=== PATIENT | male | born 1945 | race Caucasian/White ===

== ENCOUNTER → 2020-05-10 | Outpatient (CLI) | payer MEDICARE ==
[2020-05-17 16:09] VITALS: BP 143/76
--- NOTE | 2020-05-17 16:09 | Cardiology Stress Test Report ---
Stress Test Report Date of Procedure/Referring: Date of Procedure: May 10, 2020 PCP Carlos Mccurdy Aprn Admitting Physician No,Local Physician Indications: Chest pain Baseline Heart Rate: 55 Baseline Blood Pressure: Blood Pressure Systolic: 143 Blood Pressure Diastolic: 76 Baseline EKG: Baseline EKG: sinus rhythm Summary/Conclusion: Summary: Patient exercised for 8 minutes. Maximal metabolic equivalents 9.7. He she'll heart rate 58 bpm, sinus bradycardia maximum heart rate of 131 BPM which is 91 percent of maximum predicted heart rate response. Initial blood pressure 185/76 mmHg. Maximum blood pressure of 217/74 mmHg. No chest pain during the stress test. Nondiagnostic EKG at peak exercise due to significant artifact. I cannot comment on ST segment changes. Conclusion: Good functional capacity. Hypertensive response. Nondiagnostic EKG due to significant artifact. Stress test with an imaging modality is recommended if high suspicion for obstructive CAD. Brenda BALLARD MD May 17, 2020 16:09
== END ==
LOC: CARD 10:00
PROVIDERS: ATTEND Nurse Practitioner Family
DX: I10 Essential (primary) hypertension (principal)
CPT/HCPCS: 93017

== ENCOUNTER 2020-07-10 14:14 | Emergency (ER) | payer MEDICARE ==
[~2020-07-10] VITALS: Ht 175.2 cm; Wt 85.5 kg
--- NOTE | 2020-07-10 14:37 | ED Cardiac General ---
History of Present Illness General Chief Complaint: Chest Pain Stated Complaint: CHEST PAIN Source: patient Exam Limitations: no limitations History of Present Illness Date Seen by Provider: Jul 10, 2020 Time Seen by Provider: 14:30 Initial Comments 75-year-old male presents with chest pain which began yesterday. States it has been constant. Also states that he has chest pain all the time for years, usually occurring every few days and lasting minutes to hours, but he hasn't seen a doctor for that. Poor historian, but admits to having a stress test and [facility] not to long ago. Typically sees a oxygen plant operator in [place], but is unsure what hospital. Denies any history of irregular heartbeat, heart attack or heart failure. States that he does not take aspirin or any other blood thinners. Denies any recent illness, fever or chills, cough or wheezing. Allergies and Home Medications Allergies Coded Allergies: No Known Drug Allergies (Unverified , 07/10/20) Patient Home Medication List Home Medication List Reviewed: Yes Review of Systems Review of Systems Constitutional: see HPI; No fever, No malaise, No weakness EENTM: No Symptoms Reported Respiratory: Denies Cough, Denies Shortness of Air Cardiovascular: See HPI, Chest Pain; Denies Edema, Denies Irregular Heart Rate, Denies Lightheadedness, Denies Palpitations, Denies Syncope Gastrointestinal: Denies Abdominal Pain, Denies Constipated, Denies Nausea, Denies Poor Appetite, Denies Vomiting Musculoskeletal: No back pain, No joint pain Skin: No change in color, No rash Past Mnzgmlx-Ibvuye-Vlwcap Hx Past Med/Social Hx: Reviewed Nursing Past Med/Soc Hx Patient Social History Recent Foreign Travel: No Contact w/Someone Who Travel: No Physical Exam Vital Signs Vital Signs - First Documented 07/10/20 14:15 Temp 36.8 Pulse 82 Resp 14 B/P (MAP) 127/73 (91) Pulse Ox 98 O2 Delivery Room Air Capillary Refill : Height, Weight, BMI Height: '" Weight: lbs. oz. kg; BMI Method: General Appearance: No Apparent Distress, WD/WN Neck: Full Range of Motion, Non Tender, Supple Respiratory: Lungs Clear, Normal Breath Sounds, No Accessory Muscle Use, No Respiratory Distress, Other (generalized tenderness anterior chest) Cardiovascular: No Edema, No Gallop, No JVD, No Murmur, Normal Peripheral Pulses, Irregularly Irregular Gastrointestinal: Non Tender, Soft; No Distended, No Guarding, No Hepatomegaly Extremity: Normal Capillary Refill, Normal Inspection, Non Tender, No Calf Tenderness Neurologic/Psychiatric: Alert, Oriented x3, No Motor/Sensory Deficits, Normal Mood/Affect Progress/Results/Core Measures Results/Orders Lab Results Laboratory Tests Test 07/10/20 14:30 Range/Units White Blood Count 9.1 4.3-11.0 10^3/uL Red Blood Count 4.48 4.35-5.85 10^6/uL Hemoglobin 13.4 13.3-17.7 G/DL Hematocrit 41 40-54 % Mean Corpuscular Volume 90 80-99 FL Mean Corpuscular Hemoglobin 30 25-34 PG Mean Corpuscular Hemoglobin Concent 33 32-36 G/DL Red Cell Distribution Width 12.9 10.0-14.5 % Platelet Count 277 130-400 10^3/uL Mean Platelet Volume 10.1 7.4-10.4 FL Immature Granulocyte % (Auto) 0 % Neutrophils (%) (Auto) 69 42-75 % Lymphocytes (%) (Auto) 20 12-44 % Monocytes (%) (Auto) 7 0-12 % Eosinophils (%) (Auto) 4 0-10 % Basophils (%) (Auto) 1 0-10 % Neutrophils # (Auto) 6.2 1.8-7.8 X 10^3 Lymphocytes # (Auto) 1.8 1.0-4.0 X 10^3 Monocytes # (Auto) 0.7 0.0-1.0 X 10^3 Eosinophils # (Auto) 0.4 H 0.0-0.3 10^3/uL Basophils # (Auto) 0.1 0.0-0.1 10^3/uL Immature Granulocyte # (Auto) 0.0 0.0-0.1 10^3/uL Sodium Level 143 135-145 MMOL/L Potassium Level 3.9 3.6-5.0 MMOL/L Chloride Level 106 98-107 MMOL/L Carbon Dioxide Level 25 21-32 MMOL/L Anion Gap 12 5-14 MMOL/L Blood Urea Nitrogen 14 7-18 MG/DL Creatinine 1.56 H 0.60-1.30 MG/DL Estimat Glomerular Filtration Rate 43 BUN/Creatinine Ratio 9 Glucose Level 130 H 70-105 MG/DL Calcium Level 9.3 8.5-10.1 MG/DL Corrected Calcium 9.2 8.5-10.1 MG/DL Total Bilirubin 0.7 0.1-1.0 MG/DL Aspartate Amino Transf (AST/SGOT) 20 5-34 U/L Alanine Aminotransferase (ALT/SGPT) 17 0-55 U/L Alkaline Phosphatase 71 40-136 U/L Troponin I < 0.30 <0.30 NG/ML Total Protein 6.5 6.4-8.2 GM/DL Albumin 4.1 3.2-4.5 GM/DL My Orders Orders - ROVENSTINE,ASHLEY L DO Ed Iv/Invasive Line Start (07/10/20 14:18) Cbc With Automated Diff (07/10/20 14:18) Comprehensive Metabolic Panel (07/10/20 14:18) Troponin I Fs (07/10/20 14:18) Chest 1 View Ap/Pa Only (07/10/20 14:18) Ekg Tracing (07/10/20 14:18) Aspirin Chewable Tablet (Baby Aspirin Ch (07/10/20 14:45) Medications Given in ED Current Medications Medications Dose Ordered Sig/Willie Route Start Time Stop Time Status Last Admin Dose Admin Aspirin 324 mg ONCE ONCE PO 07/10/20 14:45 07/10/20 14:46 DC 07/10/20 14:50 324 MG Vital Signs/I&O 07/10/20 07/10/20 07/10/20 14:15 14:15 15:32 Temp 36.8 36.8 Pulse 82 82 Resp 14 14 B/P (MAP) 127/73 (91) 127/73 (91) Pulse Ox 98 98 O2 Delivery Room Air Room Air Room Air Progress Progress Note : Progress Note Prior to patient discharge, resting comfortably in the room without chest pain or shortness of air. Discussed labs, EKG, chest x-ray and all are normal. Patient poor historian, but advised follow-up with his oxygen plant operator. Further history was that patient had a normal stress test less than 2 months ago in [place] by Dr. Smith. Patient advised a baby aspirin daily as he said he is supposed to be but is not. Initial ECG Impression Date: Jul 10, 2020 Initial ECG Impression Time: 14:20 Initial ECG Rate: 70 Initial ECG Rhythm: A Fib/Flutter Initial ECG Intervals: Normal Initial ECG Impression: Atrial Fibrillation Initial ECG Comparisson: No Previous ECG Available Diagnostic Imaging Comments COMPARISON: None. FINDINGS: Lung volumes are normal. No focal consolidation is seen. There is no pleural effusion or pneumothorax. The cardiac silhouette is normal in size. There is aortic atherosclerosis. IMPRESSION: 1. No acute pulmonary abnormality is seen. Dictated on workstation # [id number] Dict: 07/10/20 1441 Trans: 07/10/20 1444 [id number] Interpreted by: DEBRA GRAHAM MD Electronically signed by: Departure Impression Primary Impression: Chest pain Qualified Codes: R07.9 - Chest pain, unspecified Additional Impression: Atrial fibrillation Qualified Codes: I48.91 - Unspecified atrial fibrillation Disposition: 01 HOME, SELF-CARE Condition: Stable Departure-Patient Inst. Referrals: ANGEL LOWERY APRN (PCP) Primary Care Physician [facility] (Family) Primary Care Physician Patient Instructions: Chest Pain (DC), Atrial Fibrillation (DC) Add. Discharge Instructions: Follow up with your oxygen plant operator (in [place]) or Dr Smith in [place] in 1 week regarding your recurrent chest pain and "atrial fib". You should take a baby aspirin daily if not already doing so. All discharge instructions reviewed with patient and/or family. Voiced understanding. ASHLEY SOTO DO Jul 10, 2020 14:37
[2020-07-10] MEDS ORDERED: ASPIRIN 81 MG CHEW (CHILDREN'S ASA) PO ONE (14:45)
--- NOTE | 2020-07-10 14:45 | Diagnostic Imaging Report ---
HISTORY: Chest pain. TECHNIQUE: Frontal view of the chest. COMPARISON: None. FINDINGS: Lung volumes are normal. No focal consolidation is seen. There is no pleural effusion or pneumothorax. The cardiac silhouette is normal in size. There is aortic atherosclerosis. IMPRESSION: 1. No acute pulmonary abnormality is seen. Dictated by: Dictated on workstation # [id number]
[2020-07-10 14:47] LABS: BASOPHILS % (AUTO) 1 % (0-10); EOSINOPHILS # (AUTO) 0.4 10^3/uL (0.0-0.3); EOSINOPHILS % (AUTO) 4 % (0-10); HEMATOCRIT 41 % (40-54); HEMOGLOBIN 13.4 G/DL (13.3-17.7); LYMPHOCYTES # (AUTO) 1.8 X 10^3 (1.0-4.0); LYMPHOCYTES % (AUTO) 20 % (12-44); MEAN CORPUSCULAR HEMOGLOBIN 30 PG (25-34); MEAN CORPUSCULAR HGB CONC 33 G/DL (32-36); MEAN CORPUSCULAR VOLUME 90 FL (80-99); MEAN PLATELET VOLUME 10.1 FL (7.4-10.4); MONOCYTES # (AUTO) 0.7 X 10^3 (0.0-1.0); MONOCYTES % (AUTO) 7 % (0-12); NEUTROPHILS # (AUTO) 6.2 X 10^3 (1.8-7.8); NEUTROPHILS % (AUTO) 69 % (42-75); PLATELET COUNT 277 10^3/uL (130-400); WHITE BLOOD COUNT 9.1 10^3/uL (4.3-11.0)
[2020-07-10 14:48] LABS: BASOPHILS # (AUTO) 0.1 10^3/uL (0.0-0.1)
[2020-07-10 14:55] LABS: ALANINE AMINOTRANSFERASE 17 U/L (0-55); ALBUMIN 4.1 GM/DL (3.2-4.5); ALKALINE PHOSPHATASE 71 U/L (40-136); BILIRUBIN,TOTAL 0.7 MG/DL (0.1-1.0); BUN/CREATININE RATIO 9; CALCIUM 9.3 MG/DL (8.5-10.1); CARBON DIOXIDE 25 MMOL/L (21-32); CHLORIDE 106 MMOL/L (98-107); CREATININE SERUM 1.56 MG/DL (0.60-1.30); GFR ESTIMATED 43; GLUCOSE 130 MG/DL (70-105); POTASSIUM 3.9 MMOL/L (3.6-5.0); SODIUM 143 MMOL/L (135-145); TOTAL PROTEIN 6.5 GM/DL (6.4-8.2)
[2020-07-10 15:32] VITALS: BP 127/73
== END 2020-07-10 15:20 | disposition home or self-care (01) ==
LOC: EDUNIT# 14:14 → ER FS 14:15
DX: R07.9 Chest pain, unspecified (principal); I48.91 Unspecified atrial fibrillation
CPT/HCPCS: 36415; 71045; 80053; 84484; 85025; 93005

== ENCOUNTER → 2020-07-12 | Outpatient (CLI) | payer MEDICARE | LOC: LAB 15:28 | PROVIDERS: ATTEND Internal Medicine Cardiovascular Disease | DX: R07.9 Chest pain, unspecified (principal); E78.2 Mixed hyperlipidemia; I10 Essential (primary) hypertension | CPT/HCPCS: 36415; 84484 ==

== ENCOUNTER → 2020-07-13 | Outpatient (CLI) | payer MEDICARE ==
[~2020-07-13] VITALS: Ht 175 cm; Wt 90.0 kg
[~2020-07-13] MED LIST: CATHETER FLUSH 10 ML SYR IV PRN
[2020-07-13 08:53] VITALS: BP 116/85
[2020-07-13 09:01] VITALS: BP 181/68
--- NOTE | 2020-07-13 13:55 | Cardiology Stress Test Report ---
Stress Test Report Date of Procedure/Referring: Date of Procedure: Jul 13, 2020 PCP Livan Mackey MD Admitting Physician No,Local Physician Indications: Chest pain Baseline Heart Rate: 53 Baseline Blood Pressure: Blood Pressure Systolic: 181 Blood Pressure Diastolic: 68 Vital Signs Date Time Temp Pulse Resp B/P (MAP) Pulse Ox O2 Delivery O2 Flow Rate FiO2 07/13/20 08:53 75 116/85 (95) 07/13/20 09:01 23 97 Room Air Baseline Vital Signs Vital Signs Date Time Temp Pulse Resp B/P (MAP) Pulse Ox O2 Delivery O2 Flow Rate FiO2 07/13/20 08:53 75 116/85 (95) 07/13/20 09:01 23 97 Room Air Baseline EKG: Baseline EKG: normal sinus rhythm Summary: After explaining the procedure and details to the patient, he signed the consent and was brought to the stress nuclear laboratory. Patient exercised on standard Andrés protocol, EKG, heart rate and blood pressure were monitored continuously, resting and stress doses of radio tracer were injected, imaging was acquired and reviewed in the short axis, horizontal long axis and vertical long axis views Patient was able to exercise for a total of 7 minutes on Andrés protocol, METs 8.5 Maximum heart rate 128 Maximum blood pressure 181/68 Stress EKG, Minimal nondiagnostic changes Recovery EKG, Return to baseline TID: 1.02 SSS: 0 SDS: 0 EF: 62 Conclusion: 1. Good exercise tolerance for total of 7 minutes on standard Andrés protocol, 8.5 metastases achieving 89 percent of maximum expected heart rate 2. Mild chest pain persisted during test did not change with exercise or recovery 3. Minimal nondiagnostic EKG changes with exercise returned to baseline during recovery 4. Hypertensive response to exercise returned to baseline during recovery 5. Diaphragmatic attenuation with no significant ischemia or infarction on SPECT images 6. Normal left ventricular size, EF 62 percent LIVAN MACKEY MD Jul 13, 2020 13:55
== END ==
LOC: CARD 08:00
PROVIDERS: ATTEND Internal Medicine Cardiovascular Disease
DX: I10 Essential (primary) hypertension (principal); E78.2 Mixed hyperlipidemia; R07.9 Chest pain, unspecified
CPT/HCPCS: 78452; 93017; 93306; A9502

== ENCOUNTER 2020-08-29 16:00 | Outpatient (RCR) | payer MEDICARE ==
[~2020-08-29] VITALS: Ht 175 cm; Wt 86.3 kg
[~2020-08-29 16:00] MED LIST changes: +AMLO-250 PO; +APIX5TAB PO; -CATHETER FLUSH 10 ML SYR IV PRN; +CITA20TA9 PO; +FINA5TAB6 PO; +PANT40TA52 PO; +SIMV20TA26 PO; +TMSL.4C PO
== END 2020-09-03 09:53 | disposition home or self-care (01) ==
LOC: PREOP 16:00
PROVIDERS: ATTEND Surgery
DX: Z01.818 Encounter for other preprocedural examination (principal)

== ENCOUNTER → 2020-08-31 | Outpatient (CLI) | payer MEDICARE | LOC: LAB FS 09:22 | PROVIDERS: ATTEND Surgery | DX: Z01.812 Encounter for preprocedural laboratory examination (principal); R10.13 Epigastric pain; Z80.0 Family history of malignant neoplasm of digestive organs; Z20.828 Contact with and (suspected) exposure to other viral communicable diseases | CPT/HCPCS: 87635 ==

== ENCOUNTER 2020-09-04 12:21 | Day surgery (SDC) | payer MEDICARE ==
[~2020-09-04] VITALS: Ht 175 cm; Wt 86.3 kg
[~2020-09-04 12:21] MED LIST changes: +LACTATED RINGERS 1,000 ML IV ONE
[2020-09-04] MEDS ORDERED: LACTATED RINGERS 1,000 ML IV STA (12:29)
[2020-09-04 12:30] VITALS: BP 153/88
[2020-09-04] MEDS ORDERED: HURRICAINE EXT TUBE (BENZOCAINE) XX PRN (12:30)
--- NOTE | 2020-09-04 13:16 | NUR ---
dr wray cancelled case because pt has not been off eliquis. he last took eliquis yesterday, 09/03/20.
--- NOTE | 2020-09-04 14:35 | Anesthesia-General Post-Op ---
MAC Patient Condition Mental Status/LOC: Same as Preop Cardiovascular: Satisfactory Nausea/Vomiting: Absent Respiratory: Satisfactory Pain: Controlled Complications: Absent Post Op Complications Complications None Follow Up Care/Instructions Patient Instructions None needed. Anesthesiology Discharge Order Discharge Order Patient is doing well, no complaints, stable vital signs, no apparent adverse anesthesia problems. No complications reported per nursing. KATHRYN WHITNEY CRNA Sep 04, 2020 14:35
== END 2020-09-04 13:15 | disposition home or self-care (01) ==
LOC: ENDO 12:21
PROVIDERS: ATTEND Surgery
DX: R10.13 Epigastric pain (principal); Z53.09 Procedure and treatment not carried out because of other contraindication; K21.9 Gastro-esophageal reflux disease without esophagitis; M19.90 Unspecified osteoarthritis, unspecified site; Z79.01 Long term (current) use of anticoagulants; Z79.899 Other long term (current) drug therapy; Z86.010 Personal history of colon polyps; Z80.0 Family history of malignant neoplasm of digestive organs; Z83.3 Family history of diabetes mellitus; Z82.49 Family history of ischemic heart disease and other diseases of the circulatory system

== ENCOUNTER 2020-10-30 05:54 | Outpatient (RCR) | payer MEDICARE ==
[~2020-10-30] VITALS: Ht 175.3 cm; Wt 91.2 kg
[~2020-10-30 05:54] MED LIST changes: -LACTATED RINGERS 1,000 ML IV ONE
[2020-10-31] MEDS ORDERED: LOSA25TA41 PO (13:31)
[2020-10-31] MEDS ORDERED: RIVA20TA PO (13:31)
== END 2020-11-02 12:38 | disposition home or self-care (01) ==
LOC: PREOP 05:54
PROVIDERS: ATTEND Surgery
DX: Z01.818 Encounter for other preprocedural examination (principal)

== ENCOUNTER → 2020-11-02 | Outpatient (CLI) | payer MEDICARE ==
[~2020-11-02] MED LIST changes: +LOSA25TA41 PO; +RIVA20TA PO
== END ==
LOC: LAB FS 12:15
PROVIDERS: ATTEND Surgery
DX: Z01.812 Encounter for preprocedural laboratory examination (principal); R10.13 Epigastric pain; Z80.0 Family history of malignant neoplasm of digestive organs; Z83.71 Family history of colonic polyps; Z20.822 Contact with and (suspected) exposure to COVID-19
CPT/HCPCS: 87635

== ENCOUNTER 2020-11-06 07:36 | Day surgery (SDC) | payer MEDICARE ==
[2020-11-06] VITALS (9 sets, daily range): BP systolic 92–136; BP diastolic 50–83
[~2020-11-06] VITALS: Ht 175 cm; Wt 91.0 kg
[2020-11-06] MEDS ORDERED: LACTATED RINGERS 1,000 ML IV STA (07:43)
[2020-11-06] MEDS ORDERED: LACTATED RINGERS 1,000 ML IV ONE (07:43)
[2020-11-06] MEDS ORDERED: HURRICAINE EXT TUBE (BENZOCAINE) XX PRN (07:45)
[2020-11-06] MEDS ORDERED: PROPOFOL INJECTION 50 ML IV ONE (07:55)
[2020-11-06] MEDS ORDERED: MIDAZOLAM 2 MG/2 ML (VERSED) VIAL ONE (07:55)
--- NOTE | 2020-11-06 08:13 | Progress Note-Pre Operative ---
Pre-Operative Progress Note H&P Reviewed The H&P was reviewed, patient examined and no changes noted. Date Seen by Provider: Nov 06, 2020 Time Seen by Provider: 08:13 Date H&P Reviewed: Nov 06, 2020 Time H&P Reviewed: 08:13 Pre-Operative Diagnosis: epigastric abd pain, family hx colon ca CLAUDIA BOWMAN DO Nov 06, 2020 08:13
--- NOTE | 2020-11-06 09:16 | Progress Note-Post Operative ---
Post-Operative Progess Note Surgeon (s)/Cyber Defense Incident Responder (s) Surgeon CLAUDIA BOWMAN DO Cyber Defense Incident Responder: na Pre-Operative Diagnosis epigastric abd pain, family hx colon ca Post-Operative Diagnosis hiatal hernia, reflux esophagitis, descending colon polyp, diverticulosis Procedure & Operative Findings Date of Procedure 11/06/20 Procedure Performed/Findings egd c biopsies, colonoscopy c hot bx polypectomy Anesthesia Type per formula room worker Estimated Blood Loss Estimated blood loss (mL): none Specimens/Packing Specimens Removed antrum, distal esophagus, colon polyp CLAUDIA BOWMAN DO Nov 06, 2020 09:16
--- NOTE | 2020-11-06 09:17 | Discharge Inst-Simple/Standard ---
Discharge Inst-Standard Discharge Medications New, Converted or Re-Newed RX: RX on Chart Patient Instructions/Follow Up Plan of Care/Instructions/FU: 2 weeks Mag[place] Activity as Tolerated: Yes Discharge Diet: Regular Diet CLAUDIA BOWMAN DO Nov 06, 2020 09:17
--- NOTE | 2020-11-06 12:00 | Anesthesia-General Post-Op ---
MAC Patient Condition Mental Status/LOC: Same as Preop Cardiovascular: Satisfactory Nausea/Vomiting: Absent Respiratory: Satisfactory Pain: Controlled Complications: Absent Post Op Complications Complications None Follow Up Care/Instructions Patient Instructions None needed. Anesthesiology Discharge Order Discharge Order Patient is doing well, no complaints, stable vital signs, no apparent adverse anesthesia problems. No complications reported per nursing. LEONARDO BLUE CRNA Nov 06, 2020 12:00
--- NOTE | 2020-11-06 13:54 | OPERATIVE REPORT ---
DATE OF SERVICE: 11/06/2020 PREOPERATIVE DIAGNOSES: Epigastric abdominal pain and family history of colon cancer. POSTOPERATIVE DIAGNOSES: Hiatal hernia, reflux esophagitis, descending colon polyp, and diverticulosis. PROCEDURES PERFORMED: EGD with biopsies and colonoscopy with hot biopsy polypectomy. SURGEON: Claudia Blancas DO. ANESTHESIA: Per [facility]. ESTIMATED BLOOD LOSS: None. COMPLICATIONS: None. INDICATIONS FOR PROCEDURE: The patient is a 75-year-old male with epigastric abdominal pain, family history of colon cancer. He understands the risks and benefits of procedures and wished to proceed with procedure. Consent was signed in the chart. DESCRIPTION OF PROCEDURE: The patient was taken to the endoscopy suite and placed in a left lateral recumbent position. Timeout was performed. Scope was inserted in mouth, down the esophagus, stomach and into the duodenum without difficulty. There were no polyps, masses or ulcerations within the duodenum. Scope was slowly retracted back into the stomach and further insufflated. Biopsy of the antrum was obtained. There were no polyps, masses or ulcerations. Scope was retroflexed noting a hiatal hernia and no other pathology. Scope was returned to its normal position. Scope was slowly retracted back. Some slight changes of reflux esophagitis were present in the distal esophagus. Biopsy of the distal esophagus was obtained. Scope was then slowly retracted back until completely remove noting no other pathology. A digital rectal exam was performed. There were no palpable polyps, masses or ulcerations. Scope was inserted in the rectum, advanced all the way to cecum with minimal difficulty. Prep was adequate. Scope was then slowly retracted back. There were no polyps, masses or ulcerations within the cecum, ascending, and transverse colon. In the descending colon, a small polyp was present, which hot biopsy polypectomy was performed. Scope was then continuously retracted back. No polyps, masses or ulcerations within the remainder of the descending colon or sigmoid colon. Within the sigmoid colon, a moderate amount of diverticulosis was present. Scope was then continuously retracted back in the rectum, where it was also retroflexed noting no other pathology. The patient tolerated the procedure well. Scope was then returned to its normal position, slowly withdrawn until completely removed. The patient tolerated the procedure well without any complications and taken to the recovery room in stable condition. RECOMMENDATIONS: The patient will follow up in the office in two weeks. We will need repeat colonoscopy if any change in symptoms or concerns in looking at risks and benefits. We will continue on current medications for reflux and await biopsy results. Further management pending those results. Job ID: [id number] DocumentID: [id number] Dictated Date: 11/06/2020 09:21:05 Director Of Safety Date: 11/06/2020 13:53:33 Dictated By: CLAUDIA BLANCAS DO
== END 2020-11-06 10:05 | disposition home or self-care (01) ==
LOC: ENDO 07:36
PROVIDERS: ATTEND Surgery
DX: D12.4 Benign neoplasm of descending colon (principal); K29.50 Unspecified chronic gastritis without bleeding; K44.9 Diaphragmatic hernia without obstruction or gangrene; K21.00 Gastro-esophageal reflux disease with esophagitis, without bleeding; K57.30 Diverticulosis of large intestine without perforation or abscess without bleeding; I10 Essential (primary) hypertension; I48.91 Unspecified atrial fibrillation; G47.33 Obstructive sleep apnea (adult) (pediatric); J44.9 Chronic obstructive pulmonary disease, unspecified; F41.9 Anxiety disorder, unspecified; F32.9 Major depressive disorder, single episode, unspecified; M19.90 Unspecified osteoarthritis, unspecified site; Z79.899 Other long term (current) drug therapy; Z79.02 Long term (current) use of antithrombotics/antiplatelets; Z79.01 Long term (current) use of anticoagulants; Z83.3 Family history of diabetes mellitus; Z80.9 Family history of malignant neoplasm, unspecified; Z80.0 Family history of malignant neoplasm of digestive organs

== ENCOUNTER → 2020-11-26 | Outpatient (CLI) | payer MEDICARE ==
[~2020-11-26] MED LIST changes: +LOSA50TA63 PO
--- NOTE | 2020-11-26 10:11 | Diagnostic Imaging Report ---
PROCEDURE: US Gallbladder. TECHNIQUE: Multiple real-time grayscale images were obtained over the right upper quadrant in various projections. INDICATION: Epigastric pain. FINDINGS: The liver contains large cysts. Cyst in the left lobe is approximately 10.5 x 7.7 cm. A cyst in the right lobe measures 3.7 x 2.7 cm. The portal vein is patent and shows normal direction of flow. Gallbladder is significantly contracted, limiting evaluation. No definite stones are seen. No wall thickening is identified. Extra hepatic bile duct and pancreas are obscured by bowel gas. Right kidney is unremarkable. No calculi or hydronephrosis is seen. There is no ascites. IMPRESSION: 1. Hepatic cysts. 2. Contracted gallbladder, limiting evaluation. No definite cholelithiasis or acute cholecystitis is identified. Dictated by: Dictated on workstation # [id number]
== END ==
LOC: RAD FS 08:21
PROVIDERS: ATTEND Surgery
DX: K76.89 Other specified diseases of liver (principal)
CPT/HCPCS: 76705

== ENCOUNTER 2020-11-28 09:00 | Day surgery (SDC) | payer MEDICARE ==
[2020-11-28] VITALS (11 sets, daily range): BP systolic 130–174; BP diastolic 70–105
[~2020-11-28] VITALS: Ht 178 cm; Wt 91.0 kg
[2020-11-28 07:32] LABS: HEMOGLOBIN 11.7 g/dL (13.3-17.7); MEAN PLATELET VOLUME 9.8 fL (9.0-12.2); WHITE BLOOD COUNT 6.1 10^3/uL (4.3-11.0)
[2020-11-28 07:38] LABS: BILIRUBIN,URINE NEGATIVE (NEGATIVE); CLARITY,URINE CLEAR; COLOR,URINE YELLOW; GLUCOSE, URINE (UA) NEGATIVE (NEGATIVE); KETONES,URINE NEGATIVE (NEGATIVE); LEUKOCYTE ESTERASE ,URINE NEGATIVE (NEGATIVE); NITRITE,URINE NEGATIVE (NEGATIVE); PROTEIN,URINE NEGATIVE (NEGATIVE)
[2020-11-28 07:41] LABS: AMORPHOUS SEDIMENT,UR RARE AMOR URATES /LPF; BACTERIA,URINE NEGATIVE /HPF; HYALINE CASTS, URINE RARE /LPF; RBC,URINE 0-2 /HPF; WBC,URINE 0-2 /HPF
[2020-11-28 07:42] LABS: INR 1.1 (0.8-1.4); PROTHROMBIN TIME PATIENT 14.3 SEC (12.2-14.7)
[2020-11-28 07:53] LABS: ALBUMIN 3.8 GM/DL (3.2-4.5); BILIRUBIN,TOTAL 0.9 MG/DL (0.1-1.0); CALCIUM 8.4 MG/DL (8.5-10.1); CREATININE SERUM 1.54 MG/DL (0.60-1.30); POTASSIUM 3.8 MMOL/L (3.6-5.0); TOTAL PROTEIN 6.2 GM/DL (6.4-8.2)
--- NOTE | 2020-11-28 08:05 | Diagnostic Imaging Report ---
INDICATION: Chest pain, hypertension. COMPARISON: 07/10/2020 TECHNIQUE: Single frontal radiograph of the chest dated 11/28/2020 FINDINGS: The cardiac silhouette is within normal limits in size. No significant pulmonary vascular congestion. The lungs are clear. No pleural effusion. No pneumothorax. No acute osseous abnormality. IMPRESSION: Stable examination without acute cardiopulmonary abnormality. Dictated by: Dictated on workstation # [id number]
[~2020-11-28 09:00] MED LIST changes: +HEParin (CATH LAB) 2,000 ML IV ONE; +LIDOCAINE 1% INJ 20 ML 20 ML VIAL ONE; +MIDAZOLAM 5 MG/5 ML (VERSED) VIAL ONE; +NS IV 1000 ML 1,000 ML IV SCH; +NS IV 1000 ML 1,000 ML ONE; +fentaNYL INJECTION 100 MCG/2 ML AMP ONE
--- NOTE | 2020-11-28 09:38 | Discharge Inst-Post CATH ---
Discharge Inst-CATH/EP Problems Reviewed?: Yes Post Cardiac Cath/EP D/C Inst Follow Up/Plan Appointment with Dr. HAGAN's office in 4 weeks <b>CARDIAC CATH/EP PROCEDURE DISCHARGE INSTRUCTIONS</b> ACTIVITY * Go Home directly and rest. * Limit activity of the leg (or wrist if it was used) for 7 days including aerobics, swimming, jogging, bicycling, etc. * Restrict stair-climbing for 7 days if possible, if not, climb up with your non-cath leg, then bring together on the same step. * Avoid lifting, pushing, pulling or excessive movement of the affected extremity for 7 days. * Customary sexual activity may be resumed after 2 days-use caution not to use a position that strains or causes pain to the affected extremity. * No driving for 24 hours. * NO SMOKING. * Avoid straining for bowel movements for 7 days. * Gentle walking on level ground is allowed. * Returning to work will depend on the type of procedure and the results. Your doctor will discuss this with you. CALL YOUR DOCTOR FOR ANY OF THE FOLLOWING: *If bleeding from the puncture site occurs- Apply gentle pressure to site with clean cloth and call your doctor or EMS. * If a knot or lump forms under the skin, increases in size, or causes pain. * If bruising appears to be worsening or moving further down your leg instead of disappearing. * Temperature above 101 F. CARE OF YOUR GROIN INCISION; * Bruising or purple discoloration of the skin near the puncture site is common. * You may shower only, no bathtub bathing for 5 days. Be careful to avoid slipping as your leg may feel stiff. * If a closure device was used on your femoral artery, please see the attached guide regarding care of the device and your leg. * Leave dressing on FOR 24 hours. CARE OF YOUR WRIST INCISION; * Bruising or purple discoloration of the skin near the puncture site is common. * You may shower. * DO NOT submerge wrist. * Leave dressing on FOR 24 hours. LIVAN HAGAN MD Nov 28, 2020 09:38
--- NOTE | 2020-11-28 09:43 | Cardiac Cath Report ---
Cardiac Cath Report Physician (s)/Baggage Agent (s) Physician LIVAN HAGAN MD Pre-Procedure Diagnosis Pre-Procedure Diagnosis: coronary artery disease Post-Procedure Note Procedure Start Date: Nov 28, 2020 Name of Procedure: Left heart catheterization Findings/Procedure Note PROCEDURE NOTE: 75 years old gentleman with recurrent chest pain, had abnormal stress test, scheduled for cardiac catheterization possible PTCA After explaining the procedure to the patient, all pros and cons were explained, all questions were answered. The patient signed the consent and then he was placed on the cardiac catheterization laboratory. Groin was prepped SL fashion local anesthesia was used. Sheath placed in the right femoral artery. Taran right and left catheter were used to access the coronary system. Taran right catheter was advanced to the left ventricular cavity, pressure was measured no left ventricular gram was done. At the end of the procedure the sheath was removed. Closure device was deployed FINDINGS: Hemodynamics LV 162/15, end-diastolic pressure of 15 Aorta 164/74 mean of 109 ANATOMY: Left Main is free of obstructive disease Left Anterior Descending is slightly tortuous with 40-50 percent stenosis in the first diagonal artery nonobstructive disease Left Circumflex is moderate in size with no obstructive disease Right Coronory Artery is moderate in size with no obstructive disease LV Gram was not done, pressure was measured CONCLUSION: 1. 40-50 percent first diagonal artery stenosis, nonobstructive disease otherwise mild coronary artery disease nonobstructive disease 2. Normal left ventricular end-diastolic pressure DISCUSSION AND RECOMMENDATION: Medical therapy is recommended no intervention is warranted Anesthesia Type: Conscious Sedation Estimated blood loss (mL): 20 ml Contrast Amount: 16 ml Total Radiation Dose: 225 mGy Post-Procedure Diagnosis Post-operative diagnosis: Chest pain Coronary artery disease Hypertension Hyperlipidemia LIVAN HAGAN MD Nov 28, 2020 09:43
[2020-11-28] MEDS ORDERED: PATIENT MAY USE OWN MEDS, ALL PO SCH (09:45)
[2020-11-28] MEDS ORDERED: NS IV 1000 ML 1,000 ML IV SCH (09:45)
== END 2020-11-28 14:10 | disposition home or self-care (01) ==
LOC: CATH 09:00 → SDC 09:33 → CATH 14:10
PROVIDERS: ATTEND Internal Medicine Cardiovascular Disease
DX: I25.10 Atherosclerotic heart disease of native coronary artery without angina pectoris (principal); I10 Essential (primary) hypertension; I48.0 Paroxysmal atrial fibrillation; E78.2 Mixed hyperlipidemia; M19.90 Unspecified osteoarthritis, unspecified site; Z79.899 Other long term (current) drug therapy; Z83.3 Family history of diabetes mellitus
CPT/HCPCS: 71045; 80053; 80061; 81000; 85027; 85610; 85730; 87081; 93005; 93458; C1760; C1894; 36415

== ENCOUNTER → 2020-12-06 | Outpatient (CLI) | payer MEDICARE ==
[~2020-12-06] MED LIST changes: +CATHETER FLUSH 10 ML SYR IV PRN; -HEParin (CATH LAB) 2,000 ML IV ONE; -LIDOCAINE 1% INJ 20 ML 20 ML VIAL ONE; -MIDAZOLAM 5 MG/5 ML (VERSED) VIAL ONE; -NS IV 1000 ML 1,000 ML IV SCH; -NS IV 1000 ML 1,000 ML ONE; -fentaNYL INJECTION 100 MCG/2 ML AMP ONE
--- NOTE | 2020-12-06 12:59 | Diagnostic Imaging Report ---
INDICATION: Epigastric pain. TECHNIQUE: The patient was administered 5.4 mCi of technetium 99m Choletec intravenously and imaging over the abdomen was performed. After 60 minutes, the patient ingested one can of Ensure and a gallbladder ejection fraction was calculated. FINDINGS: There is homogeneous uptake of activity by the liver with prompt excretion of activity into the common duct and gallbladder. Normal passage of activity into the small bowel is noted. The gallbladder ejection fraction is normal at 80%. IMPRESSION: Normal HIDA scan and gallbladder ejection fraction. Dictated by: Dictated on workstation # [id number]
== END ==
LOC: CARD 09:37
PROVIDERS: ATTEND Surgery
DX: R10.13 Epigastric pain (principal)
CPT/HCPCS: 78227; A9537

== ENCOUNTER 2021-02-08 20:38 | Emergency (ER) | payer MEDICARE ==
[~2021-02-08] VITALS: Ht 175.6 cm; Wt 88.5 kg
[~2021-02-08 20:38] MED LIST changes: -CATHETER FLUSH 10 ML SYR IV PRN
--- NOTE | 2021-02-08 20:41 | ED Chest Pain ---
General Stated Complaint: CHEST PAIN,LT ARM PAIN History of Present Illness Date Seen by Provider: February 08, 2021 Time Seen by Provider: 20:41 Initial Comments 76-year-old male presents with epigastric pain/chest pain. He reports has been present all day. He denies any nausea or vomiting. He had a little weird feeling in his left arm. Patient had a negative heart cath on 11/28/2020. states he is currently on prednisone for a sinus infection and has a little bit of anxiety/anxiousness. Patient reports his blood pressure was 225 systolic at home. Patient denies any radiation of the pain. No nausea, vomiting, diarrhea or other systemic complaints. Patient also had a recent colonoscopy and EGD that was negative. No reports of cough, fevers, chills. Allergies and Home Medications Allergies Coded Allergies: No Known Drug Allergies (Unverified , 08/29/20) Home Medications Citalopram Hydrobromide 20 Mg Tablet, 20 MG PO DAILY, (Reported) Finasteride 5 Mg Tablet, 5 MG PO DAILY, (Reported) Losartan Potassium 50 Mg Tablet, 50 MG PO DAILY, (Reported) Pantoprazole Sodium 40 Mg Tablet.dr, 40 MG PO DAILY, (Reported) Rivaroxaban 20 Mg Tablet, 20 MG PO DAILY, (Reported) Simvastatin 20 Mg Tablet, 20 MG PO DAILY, (Reported) Tamsulosin HCl 0.4 Mg Cap, 0.4 MG PO DAILY, (Reported) Patient Home Medication List Home Medication List Reviewed: Yes Review of Systems Review of Systems Constitutional: No chills, No fever Respiratory: Denies Cough, Denies Shortness of Air Cardiovascular: See HPI; Denies Irregular Heart Rate, Denies Lightheadedness, Denies Palpitations Gastrointestinal: See HPI, Abdominal Pain; Denies Diarrhea, Denies Nausea, Denies Vomiting Genitourinary: No Symptoms Reported Musculoskeletal: no symptoms reported Skin: no symptoms reported Past Arlgbhz-Veqwyc-Wpehte Hx Past Med/Social Hx: Reviewed Nursing Past Med/Soc Hx Patient Social History 2nd Hand Smoke Exposure: No Recent Hopitalizations: No Immunizations Up To Date Date of Influenza Vaccine: Jun 25, 2020 Seasonal Allergies Seasonal Allergies: No Past Medical History Surgeries: Yes (Hernia repair, Back surgery, KNEE) Abdominal, Orthopedic Respiratory: Yes Sleep Apnea, COPD Currently Using CPAP: Yes Cardiac: Yes Atrial Fibrillation, High Cholesterol, Hypertension Neurological: No Sexually Transmitted Disease: No HIV/AIDS: No Genitourinary: Yes (KIDNEY DISEASE- 50% USE OF KIDNEY) Gastrointestinal: Yes Colitis, Gastroesophageal Reflux Musculoskeletal: Yes (STIFF JOINTS) Arthritis Endocrine: No HEENT: Yes (GLASSES, UPPER DENTURES) Loss of Vision: Denies Hearing Impairment: Denies Cancer: No Psychosocial: Yes Anxiety, Depression Integumentary: No Blood Disorders: No Adverse Reaction/Blood Tranf: No (N/A) Physical Exam Vital Signs Vital Signs - First Documented 02/08/21 20:39 Temp 37.0 Pulse 68 Resp 18 B/P (MAP) 231/85 (133) Pulse Ox 99 O2 Delivery Room Air Capillary Refill : Height, Weight, BMI Height: '" Weight: lbs. oz. kg; 28.72 BMI Method: General Appearance: No Apparent Distress, WD/WN Neck: Normal Inspection, Non Tender Respiratory: Lungs Clear, Normal Breath Sounds, No Accessory Muscle Use Cardiovascular: Regular Rate, Rhythm, No Edema, Normal Peripheral Pulses Gastrointestinal: Soft, Tenderness (Minor epigastric tenderness) Extremity: Normal Capillary Refill, Normal Inspection, Normal Range of Motion Neurologic/Psychiatric: Alert, Oriented x3, Normal Mood/Affect, senior electrical designer II-XII Norm as Tested Skin: Normal Color, Warm/Dry Progress/Results/Core Measures Results/Orders Lab Results Laboratory Tests Test 02/08/21 20:50 Range/Units White Blood Count 15.9 H 4.3-11.0 10^3/uL Red Blood Count 4.24 L 4.35-5.85 10^6/uL Hemoglobin 12.7 L 13.3-17.7 G/DL Hematocrit 40 40-54 % Mean Corpuscular Volume 93 80-99 FL Mean Corpuscular Hemoglobin 30 25-34 PG Mean Corpuscular Hemoglobin Concent 32 32-36 G/DL Red Cell Distribution Width 13.2 10.0-14.5 % Platelet Count 313 130-400 10^3/uL Mean Platelet Volume 10.2 7.4-10.4 FL Immature Granulocyte % (Auto) 0 % Neutrophils (%) (Auto) 89 H 42-75 % Lymphocytes (%) (Auto) 7 L 12-44 % Monocytes (%) (Auto) 3 0-12 % Eosinophils (%) (Auto) 0 0-10 % Basophils (%) (Auto) 0 0-10 % Neutrophils # (Auto) 14.1 H 1.8-7.8 X 10^3 Lymphocytes # (Auto) 1.1 1.0-4.0 X 10^3 Monocytes # (Auto) 0.5 0.0-1.0 X 10^3 Eosinophils # (Auto) 0.0 0.0-0.3 10^3/uL Basophils # (Auto) 0.0 0.0-0.1 10^3/uL Immature Granulocyte # (Auto) 0.1 0.0-0.1 10^3/uL Neutrophils % (Manual) 90 % Lymphocytes % (Manual) 6 % Monocytes % (Manual) 4 % Sodium Level 139 135-145 MMOL/L Potassium Level 3.9 3.6-5.0 MMOL/L Chloride Level 102 98-107 MMOL/L Carbon Dioxide Level 26 21-32 MMOL/L Anion Gap 11 5-14 MMOL/L Blood Urea Nitrogen 28 H 7-18 MG/DL Creatinine 1.42 H 0.60-1.30 MG/DL Estimat Glomerular Filtration Rate 48 BUN/Creatinine Ratio 20 Glucose Level 135 H 70-105 MG/DL Calcium Level 9.3 8.5-10.1 MG/DL Corrected Calcium 9.1 8.5-10.1 MG/DL Magnesium Level 2.1 1.6-2.4 MG/DL Total Bilirubin 0.4 0.1-1.0 MG/DL Aspartate Amino Transf (AST/SGOT) 16 5-34 U/L Alanine Aminotransferase (ALT/SGPT) 12 0-55 U/L Alkaline Phosphatase 94 40-136 U/L Troponin I < 0.30 <0.30 NG/ML Total Protein 7.2 6.4-8.2 GM/DL Albumin 4.3 3.2-4.5 GM/DL Lipase 39 8-78 U/L My Orders Orders - HOWARD,ELI L DO Cbc With Automated Diff (02/08/21 20:46) Magnesium (02/08/21 20:46) Chest 1 View Ap/Pa Only (02/08/21 20:46) Ekg Tracing (02/08/21 20:46) Comprehensive Metabolic Panel (02/08/21 20:46) Monitor-Rhythm Ecg Trace Only (02/08/21 20:46) Aspirin Chewable Tablet (Baby Aspirin Ch (02/08/21 21:00) Nitroglycerin 0.4 Mg Btl 25's (Nitrostat (02/08/21 21:00) Ed Iv/Invasive Line Start (02/08/21 20:46) Troponin I Fs (02/08/21 20:46) Lipase (02/08/21 20:48) Famotidine Injection (Pepcid Injection) (02/08/21 20:48) Manual Differential (02/08/21 20:50) Medications Given in ED Current Medications Medications Dose Ordered Sig/Wlilie Route Start Time Stop Time Status Last Admin Dose Admin Aspirin 324 mg ONCE ONCE PO 02/08/21 21:00 02/08/21 21:01 DC 02/08/21 20:51 324 MG Nitroglycerin 0.4 mg UD PRN SL 02/08/21 21:00 02/08/21 20:51 0.4 MG Vital Signs/I&O 02/08/21 02/08/21 20:39 20:39 Temp 37.0 Pulse 68 Resp 18 B/P (MAP) 231/85 (133) Pulse Ox 99 O2 Delivery Room Air Room Air Progress Progress Note : Progress Note Patient symptoms improved with improvement of his blood pressure to a systolic of 169 along with Pepcid IV. Patient has been on steroids for 2 days. He will stop them due to the increased blood pressure over the last 2 days. Patient is currently on antibiotic for sinus infection which he will continue. I suspect his elevated white count is due to the steroids. Patient with negative heart cath to months ago. Patient is feeling significant better and is ready to go home. Patient will be discharged. He should follow-up with his primary care provider and 2 to 3 days for recheck. EKG : EKG Time: 20:40 Rate: 67 Rhythm: Normal Sinus Intervals QTC 519 ECG Impression: Normal Diagnostic Imaging Diagonstic Imaging: Xray Comments Date of Exam:02/08/21 CHEST 1 VIEW AP/PA ONLY CHEST 1 VIEW AP/PA ONLY Indication: Chest pain. Comparison: 11/28/2020 Findings: No focal airspace disease in the visualized lungs. Please note that the posterior lower lobes are poorly evaluated by portable radiography. No pleural effusion or pneumothorax. Normal cardiomediastinal silhouette. Impression: 1. No acute cardiopulmonary process by portable radiography. Reviewed: Reviewed by Me, Reviewed/Discussed Departure Impression Primary Impression: Elevated blood pressure reading Additional Impression: Gastritis Qualified Codes: K29.00 - Acute gastritis without bleeding Disposition: HOME, SELF-CARE Condition: Stable Departure-Patient Inst. Referrals: LIVAN HAGAN MD (PCP) Primary Care Physician ANGEL LOWERY APRN (Family) Primary Care Physician Patient Instructions: High Blood Pressure (DC), Gastritis ED Add. Discharge Instructions: Hold steroids until seen by her primary care provider Continue your current antibiotic Follow with your primary care provider in 2 to 3 days ELI HOWARD DO February 08, 2021 20:41
[2021-02-08] MEDS ORDERED: FAMOTIDINE 20MG/2ML IV (PEPCID) IV STA (20:48)
[2021-02-08 20:57] LABS: HEMATOCRIT 40 % (40-54); HEMOGLOBIN 12.7 G/DL (13.3-17.7); MEAN CORPUSCULAR HEMOGLOBIN 30 PG (25-34); MEAN CORPUSCULAR HGB CONC 32 G/DL (32-36); MEAN CORPUSCULAR VOLUME 93 FL (80-99); MEAN PLATELET VOLUME 10.2 FL (7.4-10.4); PLATELET COUNT 313 10^3/uL (130-400); WHITE BLOOD COUNT 15.9 10^3/uL (4.3-11.0)
[2021-02-08 20:58] LABS: BASOPHILS % (AUTO) 0 % (0-10); EOSINOPHILS % (AUTO) 0 % (0-10); LYMPHOCYTES # (AUTO) 1.1 X 10^3 (1.0-4.0); LYMPHOCYTES % (AUTO) 7 % (12-44); MONOCYTES # (AUTO) 0.5 X 10^3 (0.0-1.0); MONOCYTES % (AUTO) 3 % (0-12); NEUTROPHILS # (AUTO) 14.1 X 10^3 (1.8-7.8); NEUTROPHILS % (AUTO) 89 % (42-75)
[2021-02-08] MEDS ORDERED: ASPIRIN 81 MG CHEW (CHILDREN'S ASA) PO ONE (21:00)
[2021-02-08] MEDS ORDERED: NITROGLYCERIN 0.4 MG SL TABS BTL 25'S SL PRN (21:00)
[2021-02-08 21:17] LABS: ALBUMIN 4.3 GM/DL (3.2-4.5); BILIRUBIN,TOTAL 0.4 MG/DL (0.1-1.0); CALCIUM 9.3 MG/DL (8.5-10.1); CREATININE SERUM 1.42 MG/DL (0.60-1.30); LIPASE 39 U/L (8-78); MAGNESIUM 2.1 MG/DL (1.6-2.4); POTASSIUM 3.9 MMOL/L (3.6-5.0); TOTAL PROTEIN 7.2 GM/DL (6.4-8.2)
--- NOTE | 2021-02-08 21:18 | Diagnostic Imaging Report ---
CHEST 1 VIEW AP/PA ONLY Indication: Chest pain. Comparison: 11/28/2020 Findings: No focal airspace disease in the visualized lungs. Please note that the posterior lower lobes are poorly evaluated by portable radiography. No pleural effusion or pneumothorax. Normal cardiomediastinal silhouette. Impression: 1. No acute cardiopulmonary process by portable radiography. Dictated by: Dictated on workstation # [id number]
[2021-02-08 21:23] LABS: LYMPHOCYTES % (MANUAL) 6 %; MONOCYTES % (MANUAL) 4 %; NEUTROPHILS % (MANUAL) 90 %
[2021-02-08 21:45] VITALS: BP 162/73
== END 2021-02-08 21:45 | disposition home or self-care (01) ==
LOC: EDUNIT# 20:38 → ER FS 20:39
DX: K29.00 Acute gastritis without bleeding (principal); I10 Essential (primary) hypertension; E78.00 Pure hypercholesterolemia, unspecified; I48.91 Unspecified atrial fibrillation; J44.9 Chronic obstructive pulmonary disease, unspecified; K21.9 Gastro-esophageal reflux disease without esophagitis; F41.9 Anxiety disorder, unspecified; F32.9 Major depressive disorder, single episode, unspecified; G47.30 Sleep apnea, unspecified; Z99.89 Dependence on other enabling machines and devices; Z79.01 Long term (current) use of anticoagulants; Z79.52 Long term (current) use of systemic steroids; Z79.899 Other long term (current) drug therapy
CPT/HCPCS: 36415; 71045; 80053; 83690; 83735; 84484; 85007; 85027; 93005; 93041

== ENCOUNTER → 2021-12-19 | Outpatient (CLI) | payer MEDICARE ==
--- NOTE | 2021-12-19 10:59 | Diagnostic Imaging Report ---
PROCEDURE: CT abdomen and pelvis without contrast. TECHNIQUE: Multiple contiguous axial images were obtained through the abdomen and pelvis without the use of intravenous contrast. Auto Exposure Controls were utilized during the CT exam to meet ALARA standards for radiation dose reduction. INDICATION: Prostate cancer. COMPARISON: No prior studies are available for comparison. The lung bases are clear. The liver contains several circumscribed low-attenuation lesions suggestive of cysts. The largest is in the left lobe measuring 7.8 cm AP diameter. Gallbladder is unremarkable. There is no biliary ductal dilatation. The pancreas and spleen are unremarkable. No adrenal mass is detected. No renal calculi or hydronephrosis is identified. Aorta is nonaneurysmal. No central, retroperitoneal or mesenteric lymphadenopathy is seen. No iliac or inguinal lymphadenopathy is detected. The bowel loops are normal caliber. There is no obstruction. There is diverticulosis of the descending and sigmoid colon but no evidence of acute diverticulitis. The bladder is unremarkable. Prostate is unremarkable. There is no free fluid or fluid collection. There are fat-containing inguinal hernias bilaterally. No osteolytic or blastic lesions are seen. IMPRESSION: 1. Hepatic cysts. 2. Uncomplicated diverticulosis. 3. No evidence of abdominal or pelvic lymphadenopathy or metastatic disease. Dictated by: Dictated on workstation # [id number]
--- NOTE | 2021-12-19 17:15 | Diagnostic Imaging Report ---
INDICATION: History of prostate cancer COMPARISON: None Tc-99m MDP 26.3 mCi IV FINDINGS: The skeleton was imaged in anterior and posterior views with the moving gamma camera. There is normal distribution of tracer throughout the skeleton. No abnormal focal area of increased or decreased tracer accumulation is identified. Degenerative uptake about the bilateral knees and right foot is noted. IMPRESSION: Normal whole body bone scan. Dictated by: Dictated on workstation # [id number]
== END ==
LOC: RAD 10:15
PROVIDERS: ATTEND Urology
DX: K76.89 Other specified diseases of liver (principal); K57.30 Diverticulosis of large intestine without perforation or abscess without bleeding; Z85.46 Personal history of malignant neoplasm of prostate
CPT/HCPCS: 74176; 78306; A9503

== ENCOUNTER 2022-01-01 08:26 | Outpatient (RCR) | payer MEDICARE | END 2022-01-18 | disposition home or self-care (01) | LOC: ONC 08:26 | PROVIDERS: ATTEND Radiology Radiation Oncology | DX: C61 Malignant neoplasm of prostate (principal); K21.9 Gastro-esophageal reflux disease without esophagitis; E78.00 Pure hypercholesterolemia, unspecified; I10 Essential (primary) hypertension | CPT/HCPCS: 99204 ==

== ENCOUNTER → 2022-09-01 | Outpatient (CLI) | payer MEDICARE ==
--- NOTE | 2022-09-01 16:42 | Diagnostic Imaging Report ---
EXAMINATION: Chest 2 view HISTORY: PERSISTENT COUGH COMPARISON: None available. FINDINGS: Heart size and pulmonary vasculature are normal. The lungs are clear without consolidation, pleural effusion, or pneumothorax. The osseous structures are intact. IMPRESSION: 1. No acute radiographic abnormality in the chest. Dictated by: Dictated on workstation # [id number]
== END ==
LOC: RAD FS 15:57
PROVIDERS: ATTEND Physician Assistant
DX: R05.3 Chronic cough (principal)
CPT/HCPCS: 71046

== ENCOUNTER → 2023-08-31 | Outpatient (CLI) | payer MEDICARE ==
--- NOTE | 2023-08-31 10:15 | Diagnostic Imaging Report ---
INDICATION: Chest pain and dyspnea. PA and lateral views of the chest are obtained with comparison made study of 09/01/2022. FINDINGS: Heart size and pulmonary vascularity are within normal limits, and the lungs are clear, bilaterally. IMPRESSION: Unremarkable chest. Dictated by: Dictated on workstation # [id number]
== END ==
LOC: RAD FS 09:36
PROVIDERS: ATTEND Registered Nurse Emergency
DX: S20.219A Contusion of unspecified front wall of thorax, initial encounter (principal); X58.XXXA Exposure to other specified factors, initial encounter
CPT/HCPCS: 71046